=== PATIENT | male | born 1955 | race African-American/Black ===

== ENCOUNTER 2018-02-15 16:07 | Emergency (ER) | payer MEDICAID, MEDICARE ==
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
[2018-02-15 18:58] LABS: Urine Appearance Clear; Urine Blood Negative (Negative); Urine Color Yellow; Urine Ketones Negative (Negative); Urine Protein Negative (Negative); Urine Specific Gravity 1.013 (1.010-1.030); Urine Urobilinogen Negative (Negative)
--- NOTE | 2018-02-15 19:23 | RAD ---
Indication: Cough. 2 views the chest including dual energy PA views demonstrates no mediastinal shift. Heart is of normal size and configuration. Lung osman demonstrate no pleural fluid, pneumonia or pneumothorax. IMPRESSION: No active cardiopulmonary disease is noted.
[2018-02-15] MEDS ORDERED: Diazepam TAB(*) 5 MG PO ONE (19:57)
[2018-02-15 22:57] VITALS: BP 168/72
== END 2018-02-15 22:00 | disposition home or self-care (01) ==
LOC: ED 16:07
DX: M79.1 Myalgia (principal); Z87.828 Personal history of other (healed) physical injury and trauma; F17.200 Nicotine dependence, unspecified, uncomplicated
CPT/HCPCS: 71046; 81003; 99282; A9270-GY

== ENCOUNTER 2019-03-17 13:47 | Inpatient (IN) | payer MEDICARE, MEDICAID ==
[2019-03-17] MEDS ORDERED: NS 0.9% 1000 ML** 1,000 ML IV ONE (16:47)
--- NOTE | 2019-03-17 17:00 | ED ---
Neurological HPI - HPI Summary HPI Summary: This patient is a 64 year old M presenting to ED with a chief complaint of entire left-sided numbness since 03/15/19. The CC is described as the entire left -side of body starting gradually. The patient rates the pain 6/10 in severity. Symptoms aggravated by nothing. Symptoms alleviated by nothing. Patient denies fever. PMHx of HTN but no stroke, DM, or HLD. Patient denies family and surgical history. Patient drinks alcohol weekly, uses marijuana, and smokes tobacco daily lightly. - History of Current Complaint Chief Complaint: EDNeurologicalDeficit Stated Complaint: LEFT SIDED NUMBNESS PER PT Time Seen by Provider: 03/17/19 16:07 Hx Obtained From: Patient Onset/Duration: Gradual Onset, Started days ago - [place] 03/15/19, Still Present Timing: Constant Onset Severity: Mild Current Severity: Mild Neurological Deficit Location: LUE, LLE Pain Intensity: 6 Pain Scale Used: 0-10 Numeric Character: Numbness/Tingling Aggravating: Nothing Alleviating: Nothing Associated Signs and Symptoms: Positive: Numbness - Allergy/Home Medications Allergies/Adverse Reactions: Allergies Allergy/AdvReac Type Severity Reaction Status Date / Time No Known Allergies Allergy Verified 03/17/19 13:56 Home Medications: Home Medications Amlodipine Besylate [Norvasc] 1 tab PO DAILY 03/17/19 [History Confirmed ] Aspirin [Aspirin EC] 1 tab PO DAILY 03/17/19 [History Confirmed 03/17/19] Bisoprolol TAB* [Zebeta TAB*] 1 tab PO DAILY 03/17/19 [History Confirmed ] Valsartan/Hydrochlorothiazide [Valsartan-Hctz 160-25 mg Tab] 1 tab PO DAILY [History Confirmed 03/17/19] PMH/Surg Hx/FS Hx/Imm Hx Endocrine/Hematology History: Denies: Hx Diabetes Cardiovascular History: Reports: Hx Hypertension Denies: Hx Congestive Heart Failure History: Denies: Hx Renal Disease - Surgical History Surgery Procedure, Year, and Place: DENIES Infectious Disease History: No Infectious Disease History: Denies: Traveled Outside the US in Last 30 Days - Family History Known Family History: Negative: Hypertension, Diabetes - Social History Alcohol Use: Weekly Hx Substance Use: Yes Substance Use Type: Reports: Marijuana Substance Use Comment - Amount & Last Used: 11/08/14 Hx Tobacco Use: Yes Smoking Status (MU): Light Every Day Tobacco Smoker Review of Systems Negative: Fever Positive: Numbness - Entire left side, All Other Systems Reviewed And Are Negative: Yes Physical Exam - Summary Physical Exam Summary: GENERAL: Patient is a well-developed and nourished M who is lying comfortable in the stretcher. Patient is not in any acute respiratory distress. HEAD AND FACE: Normocephalic EYES: PERRLA, EOMI x 2. EARS: Hearing grossly intact. MOUTH: Oropharynx within normal limits. NECK: Supple, trachea is midline, no adenopathy, no JVD, no carotid bruit. CHEST: Symmetric, no tenderness at palpation LUNGS: Clear to auscultation bilaterally. No wheezing or crackles. CVS: Regular rate and rhythm, S1 and S2 present, no murmurs or gallops appreciated. ABDOMEN: Soft, non-tender. Bowel sounds are normal. No abnormal abdominal pulsations. EXTREMITIES: Full ROM in all major joints, no edema, no cyanosis or clubbing. NEURO: Alert and oriented x 3. No acute neurological deficits. Speech is normal and follows commands. Cranial nerves II-XII grossly intact, no dysmetria finger to nose. 5/5 motor capabilities on upper extremities. Sensation is 1/2 on left upper and lower and 2/2 otherwise. Reflexes normal. SKIN: Dry and warm GCS: 15 Triage Information Reviewed: Yes Vital Signs On Initial Exam: Initial Vitals Temp Pulse Resp BP Pulse Ox 97.5 F 64 16 129/73 95 03/17/19 13:51 03/17/19 13:51 03/17/19 13:51 03/17/19 13:51 03/17/19 13:51 Vital Signs Reviewed: Yes Diagnostics - Vital Signs Vital Signs Temp Pulse Resp BP Pulse Ox 03/17/19 16:33 66 95 03/17/19 16:32 64 156/82 95 03/17/19 15:31 97.7 F 58 14 138/75 97 03/17/19 13:51 97.5 F 64 16 129/73 95 - Laboratory Result Diagrams: 03/17/19 17:18 03/17/19 17:18 Lab Statement: Any lab studies that have been ordered have been reviewed, and results considered in the medical decision making process. - Radiology CXR Radiology Interpretation Completed By: Radiologist Summary of Radiographic Findings: No evidence for acute intrathoracic disease. Dr. Leach has reviewed this radiology report. - CT Brain CT Interpretation Completed By: Radiologist Summary of CT Findings: 1. 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 2. No acute intracranial process evident. Dr. Leach has reviewed this radiology report. - EKG 1650 Cardiac Rate: NL - 60 BPM EKG Rhythm: Sinus Rhythm Summary of EKG Findings: NSR at 60 BPM, normal axis. Re-Evaluation - Re-Evaluation First Eval Re-Evaluation Time: 18:20 Comment: Discussed the radiology results with patient. Patient will be admitted to [facility] for full stroke workup. I convinced the patient to stay at [facility]. Patient understands and agrees with this plan. Course/Dx - Course Course Of Treatment: This patient is a 64 year old M presenting to ED with a chief complaint of entire left-sided numbness since 03/15/19. During the ED course, patient was given Aspirin and fluids. Bloodwork obtained. Brain CT revealed 1. 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 2. No acute intracranial process evident. CXR revealed no evidence for acute intrathoracic disease. EKG revealed NSR at 60 BPM, normal axis. I discussed the patient case with Dr. Dean, neurologist , who recommended the patient for admission for full stroke workup. Case discussed with hospitalist. Patient will be admitted to Dr. Fermin with diagnosis of left-sided numbness. I discussed results with patient. The patient agrees with this plan. - Diagnoses Provider Diagnoses: Left sided numbness - Physician Notifications Discussed Care Of Patient With: Piotr Dean Time Discussed With Above Provider: 18:16 Instructed by Provider To: Other - Discussed patient case with Dr. Dean, neurologist, who accepts the patient for admission to [facility] for a full stroke workup. 1846: discussed case with Dr. Fermin, hospitalist, who accepts the patient for admission to [facility]. Discharge - Sign-Out/Discharge Documenting (check all that apply): Patient Departure All imaging exams completed and their final reports reviewed: Yes Patient Received Moderate/Deep Sedation with Procedure: No - Discharge Plan Condition: Stable Disposition: ADMITTED TO [facility] - Billing Disposition and Condition Condition: STABLE Disposition: Admitted to [facility] - Attestation Statements Document Initiated by Tyler: Yes Documenting Scribe: Malik Mendez Provider For Whom Tyler is Documenting (Include Credential): Shakira Leach MD Scribpeggy Attestation: IMalik, scribed for Shakira Leach MD on 03/17/19 at 2050. Scribe Documentation Reviewed: Yes Provider Attestation: The documentation as recorded by the raphaelibMalik woods accurately reflects the service I personally performed and the decisions made by me, Shakira Leach MD Status of Scribe Document: Viewed
[2019-03-17 17:31] LABS: Hematocrit 37 % (42-52); Hemoglobin 12.3 g/dL (14.0-18.0); Mean Corpuscular HGB Conc 33 g/dL (31-36); Mean Corpuscular Hemoglobin 29 pg (27-31); Mean Corpuscular Volume 87 fL (80-94); Platelet Count 199 10^3/uL (150-450); Red Blood Count 4.23 10^6 /uL (4.18-5.48); Red Cell Distribution Width 16 % (10.5-15); White Blood Count 5.7 10^3/uL (3.5-10.8)
[2019-03-17 17:41] LABS: INR 0.95 (0.82-1.09)
[2019-03-17 17:49] LABS: Albumin 3.7 g/dL (3.2-5.2); Albumin/Globulin Ratio 1.2 (1-3); BUN/Creatinine Ratio 16.2 (8-20); Calcium 9.4 mg/dL (8.6-10.3); EGFR African American 80.4 (>60); EGFR Non-African American 66.5 (>60); Globulin 3.2 g/dL (2-4); Total Bilirubin 0.3 mg/dL (0.2-1.0); Total Protein 6.9 g/dL (6.4-8.9)
[2019-03-17 17:51] LABS: ABS Eosinophils 0.1 10^3/ul (0-0.6); ABS Lymphocytes 2.9 10^3/ul (1.0-4.8); ABS Monocytes 0.4 10^3/ul (0-0.8); ABS Neutrophils 2.3 10^3/ul (1.5-7.7); Eosinophil % 2.4 %; Lymphocyte % 50.5 %; Nucleated Red Blood Cells % 0.5
[2019-03-17 18:11] LABS: Potassium 4.5 mmol/L (3.5-5.0)
[2019-03-17] MEDS ORDERED: Aspirin 81 mg CHEW TAB* 81 MG TAB.CHEW PO ONE (18:18)
[2019-03-17 19:38] LABS: Urine Appearance Clear; Urine Bilirubin Negative (Negative); Urine Blood Negative (Negative); Urine Color Straw; Urine Glucose Negative (Negative); Urine Ketones Negative (Negative); Urine Nitrite Negative (Negative); Urine Protein Negative (Negative); Urine Specific Gravity 1.011 (1.010-1.030); Urine Urobilinogen Negative (Negative)
[2019-03-17] MEDS ORDERED: Acetaminophen TAB* 325 MG PO PRN (19:54)
[2019-03-17] MEDS ORDERED: Docusate CAP* 100 MG PO PRN (19:54)
[2019-03-17] MEDS ORDERED: Ondansetron INJ* 2 MG/ML VIAL IV PRN (19:54)
[2019-03-17] MEDS ORDERED: Clopidogrel TAB* 300 MG PO ONE (20:13)
[2019-03-17] MEDS ORDERED: Iohexol 350* (CONTRAST) 500 ML MDV IV ONE (20:25)
[2019-03-17] MEDS ORDERED: Iohexol 350* (CONTRAST) 500 ML MDV IV SCH (21:00)
[2019-03-17] MEDS: amLODIPine TAB* 5 MG PO SCH (21:45)
[2019-03-17] MEDS: Bisoprolol TAB* 5 MG PO SCH (21:45)
[2019-03-17] MEDS: Heparin VIAL(*) 5000 UNITS/ML VIAL (FIVE THOUSAND) SUBCUT SCH (21:45)
--- NOTE | 2019-03-17 21:47 | HP ---
CC: Dr. Duane Brown; Dr. Piotr Dean HISTORY AND PHYSICAL: DATE OF ADMISSION: 03/17/19 CHIEF COMPLAINT: Left-sided numbness for 3 days. SUBJECTIVE: This is a 64-year-old who comes in to the emergency room with 3 days onset of entire left-sided body numbness that started on , 03/15/19 when he got up without any associated symptoms of weakness. He states he spoke with his PCP regarding these symptoms. He was referred to be seen on Tuesday as an outpatient visit as per the patient's subjective history. His symptom persisted; therefore, he made a followup call today. Therefore, he was reported to come in to the emergency room for further evaluation. In the emergency room, he was seen and evaluated by the ED staff. He reported that his symptom is persistent, has not subsided. He had initial workup done, which was negative for CAT scan of the brain for anything acute pathology. 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 Blood work was unremarkable. His vitals in the emergency room when he presented was 129/73 and it is up to 170 at the time of my examination. The patient was seen and evaluated by me and history was obtained as above. PAST MEDICAL HISTORY: Significant for hypertension. No history of diabetes or hyperlipidemia. The patient denies any prior known to him for any stroke in the past. PAST SURGICAL HISTORY: Denies any. MEDICATIONS: He is on: 1. Amlodipine 10 mg daily. 2. Aspirin 81 mg daily. 3. Bisoprolol 10 daily. 4. Valsartan with hydrochlorothiazide 160/25 daily. ALLERGIES: No known drug allergy. FAMILY HISTORY: No history of CVA or cancer. Denies a history of diabetes. SOCIAL HISTORY: He does drink alcohol weekly. He admits for occasional marijuana. He does have a history of tobacco use. REVIEW OF SYSTEMS: As per HPI, otherwise negative. PHYSICAL EXAMINATION GENERAL: He is awake, alert, oriented, no apparent cardiac distress. VITAL SIGNS: 154/87 blood pressure, satting 97%, respiratory rate 18, pulse 62. HEAD AND NECK: Normocephalic, atraumatic. Supple. No JVD. No carotid appreciated. LUNGS: Clear to auscultation, bilateral. CARDIOVASCULAR: S1, S2. Regular rate and rhythm. ABDOMEN: Positive bowel sounds. Soft, nontender, nondistended. EXTREMITIES: He is moving upper and lower extremities, 5/5, grossly intact. ORACLE ARCHITECT: No motor or focal sensory deficit. He does have slight expressive aphasia , which is described as old, not new that is typical speech as per the patient and his significant other at bedside. SKIN: There is no rash, no lesion. DIAGNOSTIC STUDIES/LAB DATA: His CBC unremarkable, hemoglobin 12.3, hematocrit 37, WBC 5.7, platelets 199. INR 0.9. Chemistry: Sodium 135, potassium 4.5, chloride 104, bicarb 20, BUN 18, creatinine 1.1, glucose 63. Lactic acid 2.4. Calcium 9.4. Magnesium 2.0. AST 34, ALT 45. Troponin 0.0. Albumin 3.7. No urine available. Chest x-ray shows no evidence of acute pulmonary disease. His EKG reveals sinus rhythm, rate 60, [place] 196 ms, QTc 388, QRS 91. CT scan of the brain shows left frontal lobe insult with mild encephalomalacia at the frontal lobe without change when compared to 08/18/13, no acute intracranial process. IMPRESSION AND PLAN: This is a 64-year-old male who comes in with left-sided paresthesia with a history of hypertension, without any evidence of motor or focal deficit, will be admitted to the tele for transient ischemic attack, rule out cerebrovascular accident. 1. Left-sided paresthesia, transient ischemic attack, suspect cerebrovascular accident. - We will admit to telemetry. We will obtain repeat cardiac enzyme, rule out any evidence of cardiac arrhythmia or acute coronary syndrome, although unlikely without chest pain. - We will obtain an echocardiogram with bubble study in the morning. - We will obtain CTA of the head and neck, rule out intracranial aneurysm or stenosis or thrombosis. - We will obtain MRI of the brain without gadolinium, rule out infarct. - I will check his lipid panel, HgbA1c. - The patient will be given Plavix 300 mg x1 now, then 75 daily, continue aspirin 81 daily. - We will maintain him on his blood pressure medication as per home. Continue his amlodipine 10, Diovan with HCTZ 160/25 daily, bisoprolol 10 mg daily. - We will check his urinalysis, and we will order urine drug screen. - Given his blood sugar of 60 in the emergency room on his chemistry, I am going to put him on sliding scale with coverage to rule out hyperglycemia or hypoglycemia. To call MD if greater than 250. - Neurocheck Q4hrs - PT in am. 2. Hypertension. Continue his home medication as above. 3. DVT prophylaxis: Heparin subcu q.8 hours. [id number]/[facility] #: [id number] [place]BER
--- NOTE | 2019-03-17 22:38 | PN ---
Hospitalist Progress Note Date of Service: 03/17/19 called by Nursing Staff patient with 16 beat V-tach and then pause. patient was asymptomatic. Will get EKG, Blood glucose and vital signs. Continue to monitor on telemetry.
[2019-03-18 05:23] LABS: Urine Appearance Clear; Urine Bacteria Absent (Absent); Urine Bilirubin Negative (Negative); Urine Blood Negative (Negative); Urine Color Yellow; Urine Glucose Negative (Negative); Urine Ketones Negative (Negative); Urine Nitrite Negative (Negative); Urine Protein Negative (Negative); Urine Red Blood Cell Absent (Absent); Urine Specific Gravity 1.035 (1.010-1.030); Urine Urobilinogen Negative (Negative); Urine White Blood Cell Absent (Absent)
[2019-03-18 05:31] LABS: Urine Benzodiazepine Screen None Detected (None Detect); Urine Opiates Screen None Detected (None Detect)
[2019-03-18] MEDS: Heparin VIAL(*) 5000 UNITS/ML VIAL (FIVE THOUSAND) SUBCUT SCH ×2 (06:03→16:11)
[2019-03-18 06:58] LABS: Hematocrit 36 % (42-52); Hemoglobin 12.1 g/dL (14.0-18.0); Mean Corpuscular HGB Conc 33 g/dL (31-36); Mean Corpuscular Hemoglobin 29 pg (27-31); Mean Corpuscular Volume 86 fL (80-94); Mean Platelet Volume 8.3 fL (7.4-10.4); Platelet Count 187 10^3/uL (150-450); Red Blood Count 4.19 10^6 /uL (4.18-5.48); Red Cell Distribution Width 16 % (10.5-15); White Blood Count 6.6 10^3/uL (3.5-10.8)
[2019-03-18 07:19] LABS: BUN/Creatinine Ratio 11.4 (8-20); Calcium 9.5 mg/dL (8.6-10.3); EGFR African American 85.8 (>60); EGFR Non-African American 70.9 (>60); HDL Cholesterol 34.2 mg/dL; Magnesium 1.9 mg/dL (1.9-2.7); Phosphorus 2.4 mg/dL (2.5-5.0); Potassium 3.7 mmol/L (3.5-5.0)
[2019-03-18 07:40] LABS: ABS Eosinophils 0.2 10^3/ul (0-0.6); ABS Lymphocytes 3.7 10^3/ul (1.0-4.8); ABS Monocytes 0.4 10^3/ul (0-0.8); ABS Neutrophils 2.2 10^3/ul (1.5-7.7); Eosinophil % 2.3 %; Lymphocyte % 56.9 %; Nucleated Red Blood Cells % 0.2
[2019-03-18 07:43] VITALS: BP 152/79
[2019-03-18] MEDS ORDERED: Magnesium Sulfate 2 GM IV* 2 GM/50 ML BAG IVPB ONE (07:55)
[2019-03-18] MEDS: Bisoprolol TAB* 5 MG PO SCH (08:54)
[2019-03-18] MEDS: amLODIPine TAB* 5 MG PO SCH (08:54)
[2019-03-18] MEDS ORDERED: Clopidogrel TAB* 75 MG PO SCH (09:00)
[2019-03-18] MEDS ORDERED: Valsartan TAB* 160 MG PO SCH (09:00)
[2019-03-18] MEDS ORDERED: Cyanocobalamin TAB* 500 MCG PO SCH (09:00)
[2019-03-18] MEDS ORDERED: Hydrochlorothiazide TAB* 25 MG PO SCH (09:00)
[2019-03-18] MEDS ORDERED: Cyanocobalamin INJ * 1,000 MCG/ML VIAL 1 ML VIAL IM ONE (10:56)
[2019-03-18] MEDS ORDERED: metFORMIN* 500 MG TAB PO SCH (11:00)
[2019-03-18] MEDS ORDERED: Aspirin EC TAB* 81 MG TAB.EC PO SCH (11:00)
--- NOTE | 2019-03-18 12:42 | ECHO ---
*[facility]* [place] [address] Fax #: [phone] Transthoracic Echocardiogram Patient: Jeremiah, Height: 74 in / 188 Jeffy brooks : 1955 Weight: 167.7 lb / Study Date: 03/18/2019 76.2 kg Age: 64 BP: 140 / 85 Gender: M BMI/BSA: 21.6 kg/m^2 HR: 56 bpm / 2.02 m^2 *Child Nurse: * Dejah Reyes [facility] *Referring Physician: * Yogi FerminReading Physician: * Gail Chase MD Indications: TIA. History: Risk factors: Hypertension. Conclusions Summary: 1. Left ventricle: The cavity size is normal. Wall thickness is mildly to moderately increased. Systolic function is normal. The estimated ejection fraction is 55-60%. 2. Right ventricle: The cavity size is normal. Wall thickness is mildly increased. Systolic function is normal. 3. Atrial septum: A PFO is demonstrated by agitated saline contrast. Multiple early bubbles crossing. 4. Aorta: The ascending aorta internal dimension in the A-P direction, maximal systolic dimension is 3.9 cm, mildly dilated. 5. No prior echocardiogram to compare. Study data: Transthoracic echocardiogram. Procedure: Transthoracic echocardiography was performed. Image quality was fair. A bubble study was performed. Images 84 and 85. Complete 2D, spectral Doppler, and color flow Doppler. Location: Bedside. Patient status: Inpatient. Patient room number: 445 01. Rhythm: Bradycardia. Findings Left ventricle: The cavity size is normal. Wall thickness is mildly to moderately increased. Systolic function is normal. The estimated ejection fraction is 55-60%. Wall motion is normal; there are no regional wall motion abnormalities. There is no consistent Doppler evidence of clinically significant diastolic dysfunction. Right ventricle: The cavity size is normal. Wall thickness is mildly increased. Systolic function is normal. Systolic pressure is within the normal range. Left atrium: The atrium is normal in size. Right atrium: The atrium is normal in size. Atrial septum: A PFO is demonstrated by agitated saline contrast. Multiple early bubbles crossing. Mitral valve: The leaflets are mildly thickened. There is no evidence of stenosis. There is no significant regurgitation. Aortic valve: The valve is trileaflet. The leaflets are mildly thickened. There is no significant regurgitation. Tricuspid valve: The leaflets are normal thickness. There is no evidence of stenosis. There is trivial regurgitation. Pulmonic valve: The leaflets are normal thickness. There is no evidence of stenosis. There is trivial regurgitation. Aorta: Aortic root: The aortic root is mildly dilated. Ascending aorta: The ascending aorta is mildly dilated. Aortic arch: The aortic arch is not visualized. Pericardium: There is no significant pericardial effusion. Pulmonary arteries: Not well visualized. Systolic pressure is within the normal range. Systemic veins: Inferior vena cava: The vessel is normal in size. The respirophasic diameter changes are in the normal range (>= 50%). Measurements Left ventricle Value Ref Aortic valve continued Value Ref LITTLE, LAX 5.2 cm 4.2 - 5.8 VTI, S 32.8 cm ----- ESD, LAX 3.1 cm 2.5 - 4.0 Mean grad, S 5.0 mm Hg ----- FS, LAX 40 % 25 - 43 Peak grad, S 8.0 mm Hg ----- PW, ED, LAX (H) 1.2 cm 0.6 - 1.0 EF 70 % 52 - 72 Mitral valve Value Ref E', lat flor, TDI 13.4 cm/sec >=10.0 Peak E 0.76 m/sec - ---- E/e', lat flor, 6 Peak A 1.08 m/sec ---- - TDI Decel time 251 ms ----- E', med flor, TDI 8.0 cm/sec >=7.0 PHT 116 ms - ---- E/e', med flor, 10 Mean grad, D 2.0 mm Hg ---- - TDI Peak grad, D 5.0 mm Hg ----- E', avg, TDI 10.7 cm/sec Peak E/A ratio 0.7 ---- - E/e', avg, TDI 7 <=14 MVA, PHT 1.9 cm^2 - ---- LVOT Value Ref Pulmonic valve Value Ref Peak ileana, S 1.19 m/sec Peak v, S 0.88 m/sec ----- Peak grad, S 6 mm Hg Peak grad, S 3.0 mm Hg ----- Mean grad, S 3 mm Hg Tricuspid valve Value Ref Ventricular septum Value Ref TR peak v 2.5 m/sec <=2.8 IVS, ED (H) 1.5 cm 0.6 - 1.0 Peak RV-RA grad, S 25 mm Hg ----- Right ventricle Value Ref Aortic root Value Ref LITTLE, LAX 3.1 cm Root diam 3.7 cm <4.2 LITTLE minor ax, A4C 3.4 cm 1.9 - 3.5 mid Ascending aorta Value Ref Pressure, S 28 mm Hg AAo AP diam, S 3.9 cm ----- Left atrium Value Ref Pulmonary artery Value Ref AP dim, ES (L) 2.30 cm 3.00 - Pressure, S 25.0 mm Hg ----- 4.00 ML dim, A4C 4.5 cm Inferior vena cava Value Ref SI dim, A4C 5.2 cm Diam 1.7 cm ----- Vol/bsa, ES, A/L 30 ml/m^2 16 - 34 Pulmonary veins Value Ref Right atrium Value Ref Peak v, S 0.51 m/sec ----- SI dim, ES 5.2 cm 3.4 - 5.3 Peak v, D 0.46 m/sec ----- ML dim, ES, A4C 4.0 cm 2.6 - 4.4 Peak S/D ratio 1.1 ----- Estimated RAP 3 mm Hg A rev duration 127 ms ----- Aortic valve Value Ref Flor diam, ED 2.5 cm Peak v, S 1.43 m/sec Legend: (L) and (H) [place] values outside specified reference range. Prepared and electronically signed by Gail Chase MD 03/18/2019 12:42
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
[2019-03-19] MEDS ORDERED: metFORMIN* 500 MG TAB PO SCH (09:00)
--- NOTE | 2019-03-19 20:47 | DS ---
CC: Dr. Duane Brown; Dr. Lizy Arriaga DISCHARGE SUMMARY: DATE OF ADMISSION: 03/17/19 DATE OF DISCHARGE: 03/18/19 PRIMARY CARE PROVIDER: Duane Brown MD. MY ATTENDING WHILE IN THE HOSPITAL: Lizy Arriaga MD. PRIMARY DISCHARGE DIAGNOSES: 1. Likely cerebrovascular accident causing left-sided hypoesthesia. 2. Paroxysmal atrial fibrillation. SECONDARY DISCHARGE DIAGNOSIS: Hypertension. STUDIES DONE WHILE IN THE HOSPITAL: Chest x-ray from 03/17/19 read as no acute intrathoracic disease. Electrocardiogram on 03/17/19 read as normal sinus rhythm, no ST segment elevation or depression, normal axis, no hypertrophy or enlargement. Repeat EKG shows no significant changes. Repeat EKG from 03/18/19 shows again no significant changes. Brain CT read as sequelae of old left frontal lobe insult with mild encephalomalacia to frontal pole without change. Transthoracic echocardiogram read as left ventricular size is normal, wall thickness mild to moderately increased, systolic function is normal with estimated ejection fraction of 55% to 60%. Right ventricular size is normal, wall thickness is mildly increased, systolic function is normal, PFO is demonstrated, aorta is fully dilated at 3.9 cm. Head CTA read as approximately 50% stenosis involving the M1 segment of the right middle cerebral artery, dominant left vertebral arteries identified, stenosis was visualized involving the M2 segment of the left middle cerebral artery, atherosclerosis of the internal carotid arteries with less than 50% stenosis bilaterally. No stenosis or occlusion of bilateral extracranial carotid arteries. Medial deviation of bilateral internal carotid arteries. MEDICATIONS: Prescribed at discharge: 1. Valsartan/hydrochlorothiazide 160/25 one tab p.o. daily. 2. Bisoprolol 5 mg p.o. daily. 3. Amlodipine 10 mg p.o. daily. 4. Aspirin 81 mg p.o. daily. 5. Tylenol 650 mg p.o. q.4 hours as needed. 6. Clopidogrel 75 mg p.o. daily. 7. Vitamin B12 at 1000 mcg p.o. daily. 8. Metformin 500 mg p.o. daily. New medications at discharge: 1. Clopidogrel. 2. Metformin. 3. Vitamin B12. Medications discontinued at discharge: None. HOSPITAL COURSE: This is a brief summary of the patient's presentation. For more details, please see the history and physical from Dr. Yogi Fermin on 03/17/19. In brief, the patient is a 64-year-old male with a past medical history significant for the above who presented to the emergency department after he woke up with entire left body numbness on 03/15/19 with no associated weakness. The patient was referred to the emergency department by his primary care provider. The patient had a CAT scan read as above. The patient is symptomatic from his presentation. The patient has slightly elevated lactic acid, which trended down. The patient had negative troponins. The patient had an LDL cholesterol of 54, significant elevated triglycerides at 871. The patient also has elevated hemoglobin A1c of 7.2. The patient had a low glucose of 63, but an increase in this did not help with the patient's symptoms. The patient was admitted to the hospital, monitored on telemetry overnight from to 03/18/19. The patient was initially identified to have ventricular tachycardia; however, upon review of the telemetry records, it appears to be a short burst of atrial fibrillation given irregularly irregular rhythm and the patient's preserved QRS morphology. The patient was seen in consultation by Dr. Jordan Dominguez of Neurology who recommended MRI, echocardiogram, performed as above; treatment of this paitent's risk factors. Given the patient 's atrial fibrillation, the patient was cautioned that it should be done inpatient in order to expedite this workup due to the likelihood of this being related to a cardioembolic stroke, which would necessitate full anticoagulation , which cannot be prescribed until a large infarct with high risk of hemorrhagic conversion could be ruled out with an MRI. MRI would not be available until 03/19/19. The patient was anxious to be discharged and on 03/18/19, eloped to home without signing against medical advice paperwork and would not come back. The patient did not return to the emergency department. PHYSICAL EXAMINATION ON THE DAY OF DISCHARGE: General: The patient is a 64- year- old male who appears stated age and sitting comfortably in the bed, in no acute distress. Vital Signs: At the time of evaluation, temperature 97.9, pulse rate 59, respiratory rate 20, oxygen saturation 97% on room air, blood pressure 142/57. HEENT: Head: Normocephalic, atraumatic. Sclerae anicteric. No conjunctival injection. Nasal mucosa is moist. Oral mucosa is moist. No pharyngeal erythema, discharge, or exudate. Neck: Supple, nontender. No lymphadenopathy. No carotid bruits auscultated. No JVD. Cardiac: Tachycardic. No clicks, murmurs, gallops, or rubs. Pulses 2+ in the bilateral dorsalis pedis, posterior tibialis, and radial areas. Respiratory: Clear to auscultation bilaterally. No wheezes, rales, or rhonchi. Good air exchange bilaterally. Abdomen: Soft, nontender, nondistended. Bowel sounds present, normoactive in all 4 quadrants. No hepatosplenomegaly. No abdominal bruits auscultated. No hepatojugular reflux. Genitourinary: No suprapubic or CVA tenderness. Skin: Clean, dry, intact. No open rash. Neuro: Cranial nerves II through XII intact. Cerebellar testing performed without difficulty. Strength preserved throughout. Diminished sensation to light touch on the left side compared to the right. Normal gait. Psychiatric: Somewhat anxious, otherwise pleasant and cooperative. DISCHARGE PLAN: The patient eloped to home. The patient has been prescribed the above medications. The patient's LDL cholesterol was within normal limits; however, given the patient's intracerebral atherosclerosis, the pros and cons of statin therapy should be discussed with the patient's primary care provider and risk stratification should be undergone. The patient is being instructed by the nurse who will follow up with him to call Dr. Jordan Dominguez's office for a followup appointment to arrange his further assessment. The patient should return to the hospital if he wishes to continue his workup in a more timely manner or for chest pain, shortness of breath, new weakness or other neurologic deficit. The patient should have heart healthy diet, caffeine okay, and engage in activities as tolerated. The patient should be set up with a Holter monitor outpatient if he would tolerate this to assess for further episodes of atrial fibrillation and possible anticoagulation if indicated after appropriate amount of time has passed since his CVA or after an MRI would be able to be performed. TIME SPENT: Approximately 60 minutes was spent in the care of this patient, 30 of which was spent [id number] with the patient obtaining history and physical and discussing treatment plan. At this point, the patient's plan was obviously suboptimal given his elopement. NUHA HAIR [id number]/[facility] #: [id number] WILBER
== END 2019-03-18 15:20 | disposition left against medical advice (07) | DRG 65 ==
LOC: ED 13:47 → MEDTELE 19:54
PROVIDERS: ADMIT Internal Medicine; ATTEND Internal Medicine
DX: I63.513 Cerebral infarction due to unspecified occlusion or stenosis of bilateral middle cerebral arteries (principal); G81.94 Hemiplegia, unspecified affecting left nondominant side; I10 Essential (primary) hypertension; E53.8 Deficiency of other specified B group vitamins; I48.91 Unspecified atrial fibrillation; Z79.82 Long term (current) use of aspirin; Z79.899 Other long term (current) drug therapy
CPT/HCPCS: 36415; 70450; 70496; 70498; 71045; 80048; 80053; 80061; 80307; 81003; 82607; 83036; 83605; 83721; 83735; 83880; 84100; 84484; 85025; 85610; 85730; 93005; 93306; 99284; A9270-GY; G8978-GP-CI; G8979-GP-CI; G8980-GP-CI; J1644; J3420; J3475; Q9967

== ENCOUNTER 2019-03-20 09:37 | Emergency (ER) | payer MEDICARE, MEDICAID ==
[2019-03-20] MEDS ORDERED: Labetalol IV* 5 MG/ML 20 ML VIAL IV PUSH ONE (10:00)
--- NOTE | 2019-03-20 10:23 | ED ---
Neurological HPI - HPI Summary HPI Summary: This patient is a 64 year old M presenting to [facility] with a chief complaint of neurological defects. Patient was at [facility] for a stroke on 03/17/19 but left against medical advice. Patient has tingling in his left leg and decided to return back to the ED. Pt has a BP of 161/136 on arrival but BP cuff was placed abnormally -- he reports numbness and tingling in his left lower left calf. Symptoms aggravated by nothing. Symptoms alleviated by nothing. Last known well 03/15/19. - History of Current Complaint Chief Complaint: EDNeurologicalDeficit Stated Complaint: "NEED A CT TO SEE IF I HAD A STROKE" PER PT Time Seen by Provider: 03/20/19 09:53 Hx Obtained From: Patient Onset/Duration: Started weeks ago, Still Present Onset Severity: Mild Current Severity: None Neurological Deficit Location: LLE - L calf to foot Pain Intensity: 0 Pain Scale Used: 0-10 Numeric Character: Numbness/Tingling Aggravating: Nothing Alleviating: Nothing Associated Signs and Symptoms: Positive: Numbness - Allergy/Home Medications Allergies/Adverse Reactions: Allergies Allergy/AdvReac Type Severity Reaction Status Date / Time No Known Allergies Allergy Verified 03/20/19 10:21 PMH/Surg Hx/FS Hx/Imm Hx Previously Healthy: No Endocrine/Hematology History: Denies: Hx Diabetes Cardiovascular History: Reports: Hx Hypertension Denies: Hx Congestive Heart Failure History: Denies: Hx Renal Disease Sensory History: Denies: Hx Contacts or Glasses, Hx Hearing Aid Opthamlomology History: Denies: Hx Contacts or Glasses - Surgical History Surgery Procedure, Year, and Place: DENIES Infectious Disease History: No Infectious Disease History: Denies: Traveled Outside the [place] in Last 30 Days - Family History Known Family History: Negative: Hypertension, Diabetes - Social History Alcohol Use: Weekly Hx Substance Use: Yes Substance Use Type: Reports: Marijuana Substance Use Comment - Amount & Last Used: 11/08/14 Hx Tobacco Use: Yes Smoking Status (MU): Light Every Day Tobacco Smoker Review of Systems Negative: Fever Neurological: Other - Positive: tingling in LLE Positive: Numbness All Other Systems Reviewed And Are Negative: Yes Physical Exam - Summary Physical Exam Summary: Appearance: well appearing, no pain distress Skin: warm, dry, reflects adequate perfusion Head/face: normal Eyes: EOMI, PANTERA ENT: mucous membranes moist, No JVD Neck: supple, non-tender Respiratory: CTA, breath sounds present Cardiovascular: RRR, pulses symmetrical Abdomen: non-tender, soft Bowel Sounds: present Musculoskeletal: normal, strength/ROM intact Neuro: normal, sensory motor intact, A&Ox3 NIH: +2; +1 for unknown month, +1 for numbness in LLE Triage Information Reviewed: Yes Vital Signs On Initial Exam: Initial Vitals Temp Pulse Resp BP Pulse Ox 97.5 F 71 18 144/97 96 03/20/19 09:44 03/20/19 09:44 03/20/19 09:44 03/20/19 09:44 03/20/19 09:44 Vital Signs Reviewed: Yes Diagnostics - Vital Signs Vital Signs Temp Pulse Resp BP Pulse Ox 03/20/19 09:44 97.5 F 71 18 144/97 96 - Laboratory Result Diagrams: 03/20/19 10:07 03/20/19 10:07 Lab Statement: Any lab studies that have been ordered have been reviewed, and results considered in the medical decision making process. - Radiology Brain MRI Radiology Interpretation Completed By: Radiologist Summary of Radiographic Findings: SUBACUTE NONHEMORRHAGIC INFARCT OF THE RIGHT SUSAN. CHRONIC SMALL VESSEL ISCHEMIC CHANGE. REMOTE LEFT FRONTAL INFARCT. ED Physician has reviewed this report. - EKG 1000 Cardiac Rate: NL - 61 BPM EKG Rhythm: Sinus Rhythm ST Segment: Normal Summary of EKG Findings: Patient has a normal sinus rhythym and rate of 61 with a normal axis and normal ST elevation. 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 Operator/Release Non-Paretic Hand: Both Correctly Best Gaze (Only Horizontal Eye Movement): Normal Visual Field Testing: No Visual Loss Facial Paresis-Pt to Smile & Close Eyes or Grimace Symmetry: Normal/Symmetrical Motor Function - Right Arm: No Drift-Holds 10 Seconds Motor Function - Left Arm: No Drift-Holds 10 Seconds Motor Function - Right Leg: No Drift-Holds 10 Seconds Motor Function - Left Leg: No Drift-Holds 10 Seconds Limb Ataxia-Must be out of Proportion to Weakness Present: Absent Sensory (Use Pinprick to Test Arms/Legs/Trunk/Face): Pinprick Less on Affected Best Language (Describe Picture, Name Items): No Aphasia Dysarthria (Read Several Words): Normal Extinction and Inattention: No Abnormality Total Score: 2 Course/Dx - Course Course Of Treatment: Patient with long-standing stroke symptoms having left AGAINST MEDICAL ADVICE awaiting in MRI scan. His MRI was performed today which showed a subacute infarct in his right susan. This is consistent with his symptoms. He is able to walk normally. He was seen here by the neurologist who has arranged for outpatient follow-up for him. His blood pressure is normal here. He was started on Crestor and will be maintained on aspirin, Plavix. Discharged with NIH stroke score of 1. - Differential Dx Differential Diagnoses Neuro: Positive: Other - VBI, ischemic stroke, hemorrhagic stroke, stroke mimic - Diagnoses Provider Diagnoses: Right pontine stroke - Physician Notifications Discussed Care Of Patient With: Estelle Rolle Time Discussed With Above Provider: 10:11 Instructed by Provider To: Other - Discussed pt with Dr. Rolle, neurology, recommended a brain mri and admit if needed. 11:55: Dr. Rolle evaluated the patient and recommended discharge home. Discharge - Sign-Out/Discharge Documenting (check all that apply): Patient Departure - home Patient Received Moderate/Deep Sedation with Procedure: No - Discharge Plan Condition: Stable Disposition: HOME Prescriptions: Aspirin [Aspirin EC] 325 mg PO DAILY #30 tablet. Clopidogrel TAB* [Plavix TAB*] 75 mg PO DAILY #30 tab Rosuvastatin Calcium [Crestor] 20 mg PO BEDTIME #30 tab Patient Education Materials: Ischemic Stroke (DC) Referrals: Duane rBown MD [Primary Care Provider] - Estelle Rolle MD [Medical Doctor] - Additional Instructions: Be sure to keep good control of your blood pressure and diabetes. Follow-up with her family doctor as soon as possible. Call for follow-up with a neurologist as discussed. Do not miss your medications. Return if worse, new symptoms or other concerns. - Billing Disposition and Condition Condition: STABLE Disposition: Home - Attestation Statements Document Initiated by Scribe: Yes Documenting Scribe: Colby Rich Provider For Whom Scribe is Documenting (Include Credential): Romero Lion MD Scribe Attestation: Colby Cheng, scribed for Romero Lion MD on 03/20/19 at 1340. Scribe Documentation Reviewed: Yes Provider Attestation: The documentation as recorded by the scribe, Colby Rich accurately reflects the service I personally performed and the decisions made by me, Romero Lion MD Status of Scribe Document: Viewed
[2019-03-20 10:26] LABS: INR 0.97 (0.82-1.09)
[2019-03-20 10:28] LABS: ABS Eosinophils 0.2 10^3/ul (0-0.6); ABS Lymphocytes 2.4 10^3/ul (1.0-4.8); ABS Monocytes 0.5 10^3/ul (0-0.8); ABS Neutrophils 2.5 10^3/ul (1.5-7.7); Eosinophil % 2.8 %; Hematocrit 38 % (42-52); Hemoglobin 12.8 g/dL (14.0-18.0); Lymphocyte % 42.7 %; Mean Corpuscular HGB Conc 33 g/dL (31-36); Mean Corpuscular Hemoglobin 29 pg (27-31); Mean Corpuscular Volume 86 fL (80-94); Mean Platelet Volume 8.3 fL (7.4-10.4); Nucleated Red Blood Cells % 0.2; Platelet Count 190 10^3/uL (150-450); Red Blood Count 4.44 10^6 /uL (4.18-5.48); Red Cell Distribution Width 15 % (10.5-15); White Blood Count 5.5 10^3/uL (3.5-10.8)
[2019-03-20 10:38] LABS: BUN/Creatinine Ratio 9.6 (8-20); Calcium 10.3 mg/dL (8.6-10.3); EGFR African American 64.2 (>60); Potassium 3.7 mmol/L (3.5-5.0)
[2019-03-20 12:31] VITALS: BP 135/84
[2019-03-20 12:46] LABS: HDL Cholesterol 34.3 mg/dL
--- NOTE | 2019-03-20 15:26 | CONS ---
NEUROLOGY CONSULTATION NOTE: DATE OF CONSULT: 03/20/19 CONSULTING PROVIDER: Dr. Lion. REASON FOR CONSULT: Left-sided numbness. CHIEF COMPLAINT: Left-sided numbness. HISTORY OF PRESENT ILLNESS: Mr. Daniels is a 64-year-old gentleman who has history of hypertension, dyslipidemia, diabetes, previous strokes, and dyslexia , who presented to the ER initially on 03/17/19 with left-sided numbness. The patient left against medical advice because he did not want to wait any longer for the complete workup. He was encouraged to come back by his friends and family members for further evaluation. He stated that he had sudden onset of left-sided paresthesias involving the left face, arm and leg starting morning when he woke up. The symptoms resolved on the left side of the face and arm, but it seems like the left leg is still bothersome. He was discharged home on aspirin and Plavix, but never obtained a prescription. He had a CTA head and neck that showed no evidence of large vessel occlusion. There is approximately 50% stenosis involving the M1 segment on the right. There is also stenosis involving the M2 segment on the left. There is no stenosis or occlusion of the bilateral extracranial internal carotid arteries. There is no stenosis in the internal carotid arteries. There is mild stenosis of V2 segment of the left vertebral artery. He had an MRI of the brain today that showed evidence of small acute right pontine nonhemorrhagic infarct. Labs: WBC 5.5, hemoglobin 12.8, hematocrit of 38, platelet count of 190. Sodium of 135, potassium of 3.7, chloride of 102, carbon dioxide of 22, BUN 13, creatinine of 1.35, glucose of 124. NIH stroke scale of 1 with reduced sensation in the left leg. The patient had a transthoracic echo completed on 03/17/19 that showed an ejection fraction of 55% to 60%. PFO is demonstrated by agitated saline with multiple early bubbles crossing. This is suggestive of a PFO. No evidence of intraarterial ventricular thrombus is seen. The left atrial is normal in size. Electrocardiogram showed a normal sinus rhythm. PAST MEDICAL HISTORY: Hypertension, diabetes, dyslipidemia, previous stroke. PAST SURGICAL HISTORY: None. MEDICATIONS: 1. Aspirin 81 mg daily, but the patient stated that he has not taken any aspirin over the past 4 days. 2. Bisoprolol 10 mg a day. 3. Valsartan and hydrochlorothiazide 160/25 daily. 4. Amlodipine 10 mg daily. ALLERGIES: No known drug allergy. FAMILY HISTORY: His mother had a stroke. No other family history of stroke or seizures. SOCIAL HISTORY: He drinks about a 6-pack a week. He smokes marijuana occasionally. He denied any polysubstance abuse. He does utilize tobacco regularly. REVIEW OF SYSTEMS: A 14-point review of systems was obtained and otherwise negative except for what was mentioned in the HPI. PHYSICAL EXAM: Vital Signs: Temperature 96.8, pulse of 64, respirations 16, oxygen saturation of 96% on room air, and blood pressure 135/84. General: Well - nourished, well-developed man, in no acute distress. He is alert and cooperative. Head: Normocephalic, atraumatic. Eyes: Conjunctivae/corneas are clear. Neck is supple and symmetrical. No carotid bruit. Lungs: Clear to auscultation bilaterally, nonlabored breathing. Cardiovascular: Regular rate and rhythm with normal S1, S2. Extremities: Normal range of motion with no cyanosis. Skin: No skin lesions or laceration. Psych: Affect is broad and normal mood. Easy to establish rapport. Neurological Examination: Mental status: Awake, alert, and oriented to person, place, time, and general circumstances. He is able to repeat and comprehend appropriately. Cranial Nerves: Normal confrontation testing bilaterally. Pupils are mid range and reactive to light. Normal consensual response. Sensation is intact on the forehead, cheeks, and jaw region bilaterally. No facial droop. He is able to hear throughout the history process. Symmetrical palatal elevation. There is normal strength against resistance. Tongue is symmetrical and midline with no atrophy or fasciculation. Motor Examination: No abnormal movements or pronator drift. 5/5 strength in the upper and lower extremities bilaterally. Reflexes: Right/left, brachioradialis 2/2, biceps 2/2, triceps 2/2, patella 2/2 , ankle 1/1, plantar flexor/mute. Sensation is reduced to light touch and pinprick on the left leg. Otherwise, normal vibration and proprioception at the toes. Coordination: Normal [id number]-[id number] and lalc-na-knji testing bilaterally. Gait: Narrow based, normal stance and gait. No ataxia. ASSESSMENT AND RECOMMENDATION: Mr. Jeffy Daniels is a 64-year-old man with a history of hypertension, tobacco abuse, dyslipidemia, who presented with sudden onset of left-sided paresthesias. The patient left AMA on 03/17/19, but returns again per the recommendation of family and friends. The patient was found to have an acute right pontine ischemic infarction. 1. Acute right lacunar infarct in the susan - this is involving the pontine kitchen mechanic vessels and most likely due to small vessel disease in the setting of his risk factor of chronic hypertension. Other risk factors include tobacco and alcohol use. 2. NIH stroke scale of 1. He is not a candidate for IV tPA or mechanical thrombectomy given he is outside the therapeutic window. Recommendations: Start dual-antiplatelet therapy with aspirin 81 mg and Plavix 75 mg daily for 30 days. He did not obtain a prescription that was given to him a few days ago. I educated the patient on importance of taking dual- antiplatelet therapy for the next 30 days to prevent any further stroke. Please start statin therapy; Crestor 20 mg daily is an option. Please make sure he has a lipid panel which I added to the labs. PT/OT/LOSS CONTROL TECHNICIAN evaluation treatment is unnecessary given the patient is barely symptomatic. He was able to walk around without assistance. He denied any cough or near choking spells. Secondary stroke prevention and stroke education was completed with the patient. I encouraged the patient to stop smoking. I will be more than happy to see him in 2-3 weeks. [id number]/CPS #: [id number]
== END 2019-03-20 12:29 | disposition home or self-care (01) ==
LOC: ED 09:37
DX: I63.89 Other cerebral infarction (principal); I10 Essential (primary) hypertension; Z72.0 Tobacco use; Z53.21 Procedure and treatment not carried out due to patient leaving prior to being seen by health care provider; Z79.82 Long term (current) use of aspirin
CPT/HCPCS: 36415; 70551; 80048; 80061; 82607; 83721; 85025; 85610; 93005; 99283

== ENCOUNTER 2024-04-27 09:38 | Observation (INO) ==
[2024-04-27] MEDS: Lactated Ringers 1000 ml BAG 1,000 ML IV ONE ×2 (10:46→11:55)
[2024-04-27 10:58] LABS: ABS Eosinophils 0.1 10^3/uL (0.0-0.5); ABS Lymphocytes 3.7 10^3/uL (1.0-4.8); ABS Monocytes 0.2 10^3/uL (0.0-1.1); ABS Neutrophils 3.3 10^3/uL (1.5-7.6); ABS Nucleated RBC 0.02 10^3/ul; Eosinophil % 1.8 %; Hematocrit 48.1 % (38-53); Hemoglobin 15.1 g/dL (13.2-16.3); Lymphocyte % 50.3 %; Mean Corpuscular Hemoglobin 27.4 pg (27-33); Mean Corpuscular Hgb Conc 31.4 g/dL (31-36); Mean Platelet Volume 8.3 fL (7.5-11.2); Nucleated Red Blood Cells % 0.3 %/100WBC (0.0-0.8); Platelet Count 273 10^3/uL (150-450); Red Blood Count 5.53 10^6/uL (4.06-5.63); Red Cell Distribution Width 16.1 % (12-17); White Blood Count 7.3 10^3/uL (3.6-10.2)
[2024-04-27 11:04] LABS: Urine Appearance Clear; Urine Bilirubin Negative (Negative); Urine Blood Negative (Negative); Urine Color Light-Yellow; Urine Glucose 3+ (>=300 mg/dL) (Negative); Urine Ketones Trace (Negative); Urine Nitrite Negative (Negative); Urine Protein Trace (Negative); Urine Specific Gravity 1.018 (1.002-1.030); Urine Urobilinogen Negative (Negative)
[2024-04-27 11:28] LABS: INR 0.99 (0.83-1.13)
[2024-04-27 11:35] LABS: Albumin 4.6 g/dL (3.2-5.2); Albumin/Globulin Ratio 1.6 (1-3); Creatinine, Serum 1.23 mg/dL (0.67-1.17); Globulin 2.8 g/dL (2-4); Magnesium 1.6 mg/dL (1.9-2.7); Potassium 4.4 mmol/L (3.5-5.0); Total Bilirubin 0.4 mg/dL (0.2-1.0); Total Protein 7.4 g/dL (6.4-8.9); eGFR CKD-EPI 63.2 (>60)
[2024-04-27 11:48] LABS: TSH Ultra Thyroid Stim Horm 2.85 mcIU/mL (0.34-5.60)
[2024-04-27 12:06] LABS: Venous Bicarbonate HCO3 22.9 mmol/L (24-28)
[2024-04-27 12:32] LABS: High Sensitivity Troponin 1 Hr 21 pg/mL (<20)
[2024-04-27] MEDS: Iodixanol (CONTRAST) 320 MG/ML 100 ML SDV IV ONE (12:50)
[2024-04-27 14:30] LABS: High Sensitivity Troponin 3 Hr 27 pg/mL (<20)
[2024-04-27] MEDS ORDERED: Dextrose 50% Syringe 50 ml 25 GM/50 ML SYRINGE IV PUSH PRN (16:47)
[2024-04-27] MEDS ORDERED: Dextran 70/Hypromellose Tears Eye Drops 15 ml BTL (for Artificials Tears) LEFT EYE PRN (16:59)
[2024-04-27] MEDS ORDERED: Albuterol HFA INHALER 8 gm MDI INH PRN (17:19)
[2024-04-27 17:35] LABS: Folate 5.27 ng/mL (5.90-24.80)
[2024-04-27] MEDS: Lactated Ringers 1000 ml BAG 1,000 ML IV SCH (17:44)
[2024-04-27] MEDS ORDERED: Thiamine 100 MG/ML 2 ml VIAL (200 mg) IV ONE (17:45)
[2024-04-27] MEDS: Magnesium Sulfate 2 gm BAG 2 GM/50 ML BAG IVPB ONE (17:46)
[2024-04-27] MEDS: Enoxaparin 40 MG/0.4 ML SYR SUBCUT SCH (17:48)
[2024-04-27] MEDS: Thiamine 100 MG/ML 2 ml VIAL (200 mg) IM ONE (18:34)
[2024-04-27] MEDS: Thiamine IV 100 MG in NS 0.9% 50 ML Q24H IV ONE (20:49)
[2024-04-27] MEDS: Diclofenac Sod EC 25 mg TAB PO SCH (20:54)
[2024-04-28] MEDS: Lactated Ringers 1000 ml BAG 1,000 ML IV SCH (06:34)
[2024-04-28] MEDS: Multivitamins/Minerals TAB PO SCH (08:18)
[2024-04-28] MEDS: Aspirin EC 81 mg TAB.EC (enteric coated) PO SCH (08:18)
[2024-04-28 08:24] LABS: Albumin 3.6 g/dL (3.2-5.2); Albumin/Globulin Ratio 1.6 (1-3); Calcium 9.9 mg/dL (8.6-10.3); Creatinine, Serum 0.96 mg/dL (0.67-1.17); Globulin 2.2 g/dL (2-4); Magnesium 1.7 mg/dL (1.9-2.7); Potassium 3.8 mmol/L (3.5-5.0); Total Bilirubin 0.6 mg/dL (0.2-1.0); Total Protein 5.8 g/dL (6.4-8.9)
[2024-04-28] MEDS: Lactated Ringers SEPSIS* BAG 1,910 ML IV ONE (09:41)
[2024-04-28 11:53] LABS: Hematocrit 40.1 % (38-53); Hemoglobin 13.2 g/dL (13.2-16.3); Mean Corpuscular Hemoglobin 28.4 pg (27-33); Mean Corpuscular Hgb Conc 32.9 g/dL (31-36); Mean Corpuscular Volume 86.3 fL (80-97); Mean Platelet Volume 8.8 fL (7.5-11.2); Platelet Count 208 10^3/uL (150-450); Red Blood Count 4.65 10^6/uL (4.06-5.63); White Blood Count 6.1 10^3/uL (3.6-10.2)
[2024-04-28] MEDS: NS 0.9% 1000 ml BAG 1,000 ML IV SCH (17:23)
[2024-04-29 07:01] LABS: ABS Eosinophils 0.2 10^3/uL (0.0-0.5); ABS Lymphocytes 2.5 10^3/uL (1.0-4.8); ABS Monocytes 0.2 10^3/uL (0.0-1.1); ABS Neutrophils 1.8 10^3/uL (1.5-7.6); ABS Nucleated RBC 0.01 10^3/ul; Hematocrit 36.3 % (38-53); Hemoglobin 12.1 g/dL (13.2-16.3); Mean Corpuscular Hemoglobin 28.4 pg (27-33); Mean Corpuscular Hgb Conc 33.3 g/dL (31-36); Mean Corpuscular Volume 85.3 fL (80-97); Mean Platelet Volume 8.1 fL (7.5-11.2); Nucleated Red Blood Cells % 0.2 %/100WBC (0.0-0.8); Platelet Count 192 10^3/uL (150-450); Red Blood Count 4.26 10^6/uL (4.06-5.63); Red Cell Distribution Width 15.3 % (12-17); White Blood Count 4.7 10^3/uL (3.6-10.2)
[2024-04-29 07:42] LABS: ALT 25 U/L (7-52); AST 29 U/L (13-39); Albumin 3.6 g/dL (3.2-5.2); Albumin/Globulin Ratio 1.6 (1-3); Alkaline Phosphatase 70 U/L (35-149); Anion Gap 10 mmol/L (2-16); Blood Urea Nitrogen 10 mg/dL (6-24); CO2 Carbon Dioxide 26 mmol/L (22-32); Calcium 9.7 mg/dL (8.6-10.3); Chloride 101 mmol/L (101-111); Globulin 2.3 g/dL (2-4); Glucose 161 mg/dL (70-100); Magnesium 1.5 mg/dL (1.9-2.7); Phosphorus 3.5 mg/dL (2.5-5.0); Potassium 3.9 mmol/L (3.5-5.0); Sodium 137 mmol/L (135-145); Total Bilirubin 0.5 mg/dL (0.2-1.0); Total Protein 5.9 g/dL (6.4-8.9); eGFR CKD-EPI 91.9 (>60)
[2024-04-29 09:12] LABS: Alcohol, S < 13 mg/dL (<13)
[2024-04-29] MEDS: Magnesium Sulfate 2 gm BAG 2 GM/50 ML BAG IVPB ONE (09:30)
[2024-04-29] MEDS: Sulfur Hexaflouride MICROSPHR 25 MG VIAL IV ONE (11:28)
[2024-04-29 14:13] VITALS: BP 164/98
[2024-05-04 14:40] LABS: Amphetamines Screen Blood None Detected; Cocaine Metabolites Screen Bl None Detected; Fentanyl/Acetyl FentanylScreen None Detected; Methadone Metabolites Scrn Bl None Detected; Methamphetamines/MDMA Screen None Detected; Opiates Screen Blood None Detected; Oxycodone/Oxymorphone Scrn Bl None Detected; Phencyclidine Screen Blood None Detected
[2024-05-07 08:17] LABS: 11-Hydroxy Delta-9 THC 2.2 ng/mL; Delta-9 Carboxy THC 31 ng/mL; Delta-9 THC 5.2 ng/mL
== END 2024-04-29 16:05 | disposition home or self-care (01) ==
LOC: ED 09:38 → EDHOLD 09:38 → MEDTELE 16:35
PROVIDERS: ADMIT Student in an Organized Health Care Education/Training Program; ATTEND Student in an Organized Health Care Education/Training Program